=== PATIENT | female | born 1975 | race African-American/Black ===

== ENCOUNTER 2019-06-01 21:48 | Emergency (ER) | payer OTHER ==
[2019-06-01 22:08] VITALS: BP 111/68; PULSE 80; TEMP 98.7; BMI 26.6
--- NOTE | 2019-06-02 00:23 | PDOC ---
Documentation entered by Destinee Murrell SCRIBE, acting as scribe for Libertad Cook MD. Libertad Cook MD: This documentation has been prepared by the Handy eason Sammi, SCRIBE, under my direction and personally reviewed by me in its entirety. I confirm that the documentation accurately reflects all work, treatment, procedures, and medical decision making performed by me. History of Present Illness - General Chief Complaint: Vaginal Bleeding Stated Complaint: VAGINAL BLEEDING Time Seen by Provider: 06/01/19 22:23 - History of Present Illness Initial Comments: 06/01/19 22:46 The patient is a 43 year old female, with a significant PMH of vaginal cysts and fibroids, who presents to the emergency department for evaluation of 4 days of heavy abnormal vaginal bleeding which she describes as clots. She notes yesterday was the heaviest and has slightly improved today with the use of about 4 pads today. She has not taken anything for the pain as of yet. The patient reports history of transfusions after her left ovary was removed. Surgical history: c-sec x1, left ovariectomy (2011) COMMUNITY DEVELOPMENT SPECIALIST: Augustin Past History - Past Medical History Allergies/Adverse Reactions: Allergies Allergy/AdvReac Type Severity Reaction Status Date / Time No Known Drug Allergies Allergy Verified 06/01/19 22:05 Home Medications: Ambulatory Orders NK [No Known Home Medication] 06/27/16 Anemia: No Asthma: No Cancer: No Cardiac Disorders: No CVA: No COPD: No CHF: No Dementia: No Diabetes: No GI Disorders: No Disorders: No HTN: No Hypercholesterolemia: No Liver Disease: No Seizures: No Thyroid Disease: No - Suicide/Smoking/Psychosocial Hx Smoking History: Never smoked Have you smoked in the past 12 months: No Hx Alcohol Use: No Drug/Substance Use Hx: No Substance Use Type: None Hx Substance Use Treatment: No Review of Systems - Review of Systems Comments:: 06/01/19 23:04 CONSTITUTIONAL: Absent: fever, no chills, no fatigue EYES: Absent: visual changes ENT: Absent: ear pain, no sore throat CARDIOVASCULAR: Absent: chest pain, no palpitations RESPIRATORY: Absent: cough, no SOB GI: Absent: abdominal pain, no nausea, no vomiting, no constipation, no diarrhea GENITOURINARY: (+)abnormal vaginal bleeding Absent: dysuria, no frequency, no hematuria MUSKULOSKELETAL: Absent: back pain, no arthralgia, no myalgia SKIN: Absent: rash NEURO: Absent: headache *Physical Exam - Vital Signs Last Vital Signs Temp Pulse Resp BP Pulse Ox 98.7 F 80 18 111/68 99 06/01/19 22:05 06/01/19 22:05 06/01/19 22:05 06/01/19 22:05 06/01/19 22:05 - Physical Exam Comments: 06/01/19 23:04 GENERAL: Well-appearing, well-nourished. No apparent distress. HEENT: Normocephalic, atraumatic. PERRL, EOM intact. CARDIOVASCULAR: Normal S1, S2. Regular rate and rhythm. PULMONARY: Clear to auscultation bilaterally. ABDOMEN: Soft, non-distended, non-tender. EXTREMITIES: Normal ROM in all four extremities. No gross deformities. SKIN: Warm, dry. No rash NEUROLOGICAL: No focal neurological deficits. Female Pelvic Exam: positive: vaginal bleeding ED Treatment Course - LABORATORY CBC & Chemistry Diagram: 06/02/19 00:49 06/02/19 00:49 - ADDITIONAL ORDERS Additional order review: Laboratory Results 06/01/19 06/01/19 06/01/19 23:15 23:15 23:15 Sodium Cancelled Potassium Cancelled Chloride Cancelled Carbon Dioxide Cancelled Anion Gap Cancelled BUN Cancelled Creatinine Cancelled Est GFR (CKD-EPI)AfAm Cancelled Est GFR (CKD-EPI)NonAf Cancelled Random Glucose Cancelled Calcium Cancelled Total Bilirubin Cancelled AST Cancelled ALT Cancelled Alkaline Phosphatase Cancelled Total Protein Cancelled Albumin Cancelled Serum , Qual Negative Blood Type Cancelled Antibody Screen Cancelled 06/01/19 23:15 RBC 3.24 L MCV 91.6 MCHC 32.4 RDW 15.7 H D MPV 9.8 D Neutrophils % 27.4 L D Lymphocytes % 60.9 H D Monocytes % 9.8 Eosinophils % 1.2 Basophils % 0.7 - RADIOLOGY Radiology Studies Ordered: Category Date Time Status TRANSVAGINAL ULTRASOUND US [US] Stat Ultrasound 06/02/19 00:11 Ordered Medical Decision Making - Medical Decision Making 06/02/19 00:46 43 yo female p/w vaginal bleeding 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 Fibroids There is normal arterial and venous flow to the right ovary. 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
[2019-06-02 01:22] LABS: BASO % 0.9 % (0-2.0); EOS % 6.3 % (0-4.5); HEMATOCRIT 39.9 % (32.4-45.2); HEMOGLOBIN 12.8 GM/dL (10.7-15.3); LYMPH % 46.1 % (8-40); MCH 27.4 pg (25.7-33.7); MCHC 31.9 g/dl (32.0-36.0); MEAN CELL VOLUME 85.7 fl (80-96); MEAN PLT VOLUME 8.2 fl (7.5-11.1); MONO % 13.4 % (3.8-10.2); NEUT % 33.3 % (42.8-82.8); PLATELET COUNT 292 K/MM3 (134-434); RBC 4.66 M/mm3 (3.60-5.2); RDW 13.9 % (11.6-15.6); WHITE BLOOD COUNT 5.5 K/mm3 (4.0-10.0)
[2019-06-02 01:28] LABS: ALBUMIN 3.8 g/dl (3.4-5.0); BILIRUBIN,TOTAL 0.2 mg/dL (0.2-1); BLOOD UREA NITROGEN 15.2 mg/dL (7-18); CALCIUM 9.6 mg/dL (8.5-10.1); POTASSIUM 4.3 mmol/L (3.5-5.1); TOT PROT 8.5 g/dl (6.4-8.2)
== END 2019-06-02 01:57 | disposition home or self-care (01) ==
LOC: JER 21:48
DX: N83.201 Unspecified ovarian cyst, right side (principal)
CPT/HCPCS: 36415; 76830-TC; 80053; 84703; 85025; 86850; 86900; 86901; 99282-25